=== PATIENT | male | born 1955 | race Two or more races ===

== ENCOUNTER 2021-01-06 05:43 | Day surgery (SDC) | payer OTHER ==
[~2021-01-06 05:43] MED LIST: ALDACTONE25 MG PO; NORVASC5 MG PO; ZESTRIL40 M1 PO
== END 2021-01-06 12:30 | disposition home or self-care (01) ==
LOC: EDSEX 05:43 → CIR.AMB 05:43
PROVIDERS: ATTEND Urology
DX: N47.1 Phimosis (principal); Z20.822 Contact with and (suspected) exposure to COVID-19

== ENCOUNTER → 2021-02-11 12:15 | Outpatient (CLI) | payer OTHER | END | disposition home or self-care (01) | LOC: LAB 12:15 | PROVIDERS: ATTEND Urology | DX: R97.20 Elevated prostate specific antigen [PSA] (principal) ==

== ENCOUNTER 2021-03-19 07:37 | Outpatient (CLI) | payer OTHER | END 2021-03-19 07:55 | disposition home or self-care (01) | LOC: SONOGRAMA 07:37 | PROVIDERS: ATTEND Urology | DX: C61 Malignant neoplasm of prostate (principal); D29.1 Benign neoplasm of prostate; R97.20 Elevated prostate specific antigen [PSA] ==

== ENCOUNTER → 2021-04-06 | Outpatient (CLI) | payer OTHER | END | disposition home or self-care (01) | LOC: TOM 09:24 | PROVIDERS: ATTEND Urology | DX: N47.1 Phimosis (principal); C61 Malignant neoplasm of prostate ==

== ENCOUNTER 2021-04-08 07:30 | Outpatient (CLI) | payer OTHER | END 2021-04-08 07:31 | disposition home or self-care (01) | LOC: NUCLEAR 07:30 | PROVIDERS: ATTEND Urology | DX: N47.1 Phimosis (principal); C61 Malignant neoplasm of prostate | CPT/HCPCS: 78803; A9503 ==

== ENCOUNTER 2021-06-25 11:20 | Outpatient (CLI) | payer OTHER | END 2021-06-25 11:22 | disposition home or self-care (01) | LOC: SONOGRAMA 11:20 | PROVIDERS: ATTEND Urology | DX: R31.1 Benign essential microscopic hematuria (principal) ==